=== PATIENT | male | born 1935 | race Caucasian/White ===

== ENCOUNTER 2017-06-23 14:45 | Inpatient (IN) ==
[2017-06-23] MEDS ORDERED: SODIUM CHLORIDE 0.9% 500 ML IV STA (16:07)
[2017-06-23 16:09] LABS: Basophils % 0.1 % (0.0-0.8); Eosinophils % 0.4 % (0.00-10.9); Hemoglobin 12.4 GM/DL (14.0-18.0); Immature Granulocytes % 0.3 %; Immature Granulocytes Absolute 0.02 #; Lymphocytes # 0.4 10*3/uL (1.4-4.0); Lymphocytes % 4.9 % (21.2-54.2); Mean Corpuscular HGB Conc 37.6 GM/DL (32-36); Mean Corpuscular Hemoglobin 32 PG (27-34); Mean Corpuscular Volume 86.2 FL (87-102); Mean Platelet Volume 10.8 FL (9.6-12.0); Monocytes # 0.5 10*3/uL (0.11-0.8); Monocytes % 6.5 % (1.7-12.7); Neutrophils # 6.8 10*3/uL (1.4-7.4); Neutrophils % 87.8 % (38.7-73.9); Platelet Count 106 T/CUMM (130-400); Red Blood Count 3.83 MC/CUMM (3.8-5.5); Red Cell Distribution Width 13.6 % (9.3-17.3); White Blood Count 7.7 T/CUMM (4-12)
[2017-06-23 16:17] LABS: INR 1.7; Partial Thromboplastin Time 36.4 SECS (0-40)
[2017-06-23 16:28] LABS: Albumin 3.3 G/DL (3.4-5.0); Bilirubin,Total 1.8 MG/DL (0.2-1.0); Calcium 8.3 MG/DL (8.5-10.1); Osmolality,Calculated 242.6 MOS/KG (273-304); Total Protein 6.5 G/DL (6.4-8.3)
[2017-06-23 16:36] LABS: Potassium 2.1 MMOL/L (3.5-5.1)
[2017-06-23 17:11] LABS: Ammonia 72 UMOL/L (11-32)
[2017-06-23 17:15] LABS: Lactic Acid 1.6 MMOL/L (0.4-2.0)
[2017-06-23 17:17] LABS: Lymphocytes 7 % (20-55); Platelet Estimate Decreased; Segmented Neutrophils 89 % (50-85); Total Cells Counted 100
[2017-06-23 17:23] LABS: Apearance,Urine CLEAR (Clear); Bilirubin,Urine Negative (Negative); Blood, Urine Negative (Negative); Glucose,Urine (UA) Negative (Negative); Hyaline Casts,Urine 1 /LPF (0-3); Ketones,Urine Negative (Negative); Mucus,Urine Occasional /LPF (Occasional); Nitrite,Urine Negative (Negative); Protein,Urine Negative; RBC,Urine <1 /HPF (0-4); Squamous Epithelial Cell,Urine Occasional /HPF (0-10); Urine Color Yellow (Yellow); Urine Specific Gravity 1.005 (1.001-1.035); Urine Urobilinogen < 2.0 EU/DL (0.2-1.0)
[2017-06-23 17:23] LABS: Troponin I Only 0.091 NG/ML (0.00-0.045)
[2017-06-23] MEDS ORDERED: ACETAMINOPHEN 325 MG TABLET PO PRN (17:30)
[2017-06-23] MEDS ORDERED: ALBUTEROL 2.5 MG/3 ML NEB RESP TX PRN (17:30)
[2017-06-23] MEDS ORDERED: ONDANSETRON 4 MG/2 ML VIAL IV PRN (17:30)
[2017-06-23] MEDS ORDERED: POTASSIUM CHLORIDE RIDER 10 MEQ in PREMIX 1 EACH IV PRN (17:40)
[2017-06-23] MEDS: SODIUM CHLORIDE 3% INJ 500 ML IV SCH (18:05)
[2017-06-23] MEDS ORDERED: SODIUM CHLORIDE 0.9% 250 ML IV ONE (18:18)
[2017-06-23 19:53] LABS: Hepatitis A Ab IgM Result Negative (Negative); Hepatitis B Core IgM Quant 0.05 Index; Hepatitis B Core IgM Result Negative (Negative); Hepatitis B Surface Ag Quant 0.13 Index; Hepatitis B Surface Ag Result Negative (Negative); Hepatitis C Virus Ab Quant 0.05 Index; Hepatitis C Virus Ab Result Negative (Negative)
[2017-06-23] MEDS ORDERED: ENOXAPARIN 60 MG/0.6 ML SYRINGE ONE (20:27)
[2017-06-23] MEDS ORDERED: POTASSIUM CHLORIDE RIDER 200 ML IV ONE (20:27)
[2017-06-23] MEDS: ENOXAPARIN 60 MG/0.6 ML SYRINGE SUBCUT SCH (20:48)
[2017-06-23] MEDS: POTASSIUM CHLORIDE RIDER 10 MEQ in PREMIX 1 EACH IV SCH ×3 (20:50→22:38)
[2017-06-23 21:29] LABS: Troponin I Only 0.086 NG/ML (0.00-0.045)
[2017-06-23 21:31] LABS: Potassium 1.9 MMOL/L (3.5-5.1)
[2017-06-23] MEDS ORDERED: POTASSIUM CHLORIDE RIDER 100 ML IV ONE (22:39)
[2017-06-24] MEDS: LACTULOSE 20 GM/30 ML UDCUP PO SCH ×5 (00:14→23:35)
[2017-06-24] MEDS: POTASSIUM CHLORIDE RIDER 10 MEQ in PREMIX 1 EACH IV SCH ×7 (00:19→07:37)
[2017-06-24 03:04] LABS: Basophils % 0.1 % (0.0-0.8); Eosinophils % 0.4 % (0.00-10.9); Hemoglobin 11.1 GM/DL (14.0-18.0); Immature Granulocytes % 0.5 %; Immature Granulocytes Absolute 0.04 #; Lymphocytes # 0.3 10*3/uL (1.4-4.0); Lymphocytes % 4.1 % (21.2-54.2); Mean Corpuscular Hemoglobin 32 PG (27-34); Mean Corpuscular Volume 86.7 FL (87-102); Mean Platelet Volume 11.3 FL (9.6-12.0); Monocytes # 0.6 10*3/uL (0.11-0.8); Monocytes % 7.3 % (1.7-12.7); Neutrophils # 7.3 10*3/uL (1.4-7.4); Neutrophils % 87.6 % (38.7-73.9); Platelet Count 104 T/CUMM (130-400); Red Blood Count 3.46 MC/CUMM (3.8-5.5); Red Cell Distribution Width 13.8 % (9.3-17.3); White Blood Count 8.3 T/CUMM (4-12)
[2017-06-24 03:12] LABS: INR 1.8; PT Patient Result 19.1 SECS
[2017-06-24 03:52] LABS: Band Neutrophils 2 % (0-10); Lymphocytes 2 % (20-55); Segmented Neutrophils 89 % (50-85)
[2017-06-24 03:55] LABS: Platelet Estimate Decreased; Total Cells Counted 100
[2017-06-24 04:19] LABS: Albumin 2.9 G/DL (3.4-5.0); Bilirubin,Direct 0.7 MG/DL (0.0-0.20); Bilirubin,Indirect 0.8 MG/DL (0.0-1.0); Bilirubin,Total 1.5 MG/DL (0.2-1.0); Free T4 (Free Thyroxine) 1.19 NG/DL (0.76-1.46); Thyroid Stimulating Hormone 7.04 uIU/ml (0.358-3.74); Total Protein 5.5 G/DL (6.4-8.3)
[2017-06-24 04:21] LABS: Troponin I Only 0.095 NG/ML (0.00-0.045)
[2017-06-24 06:35] LABS: Calcium 7.7 MG/DL (8.5-10.1); Osmolality,Calculated 254.8 MOS/KG (273-304)
[2017-06-24 06:36] LABS: Potassium 2.3 MMOL/L (3.5-5.1)
[2017-06-24] MEDS ORDERED: POTASSIUM CHLORIDE INJ 10 MEQ in SODIUM CHLORIDE 0.9% 100 ML IV SCH (07:00)
[2017-06-24] MEDS: PANTOPRAZOLE 40 MG TABLET PO SCH (08:49)
[2017-06-24] MEDS ORDERED: POTASSIUM CHLORIDE INJ 60 MEQ in SODIUM CHLORIDE 0.9% 1,000 ML IV SCH (11:00)
[2017-06-24] MEDS: SODIUM CHLORIDE 3% INJ 500 ML IV SCH (13:41)
[2017-06-24] MEDS: WARFARIN 4 MG TABLET PO SCH (18:14)
[2017-06-24 20:38] LABS: Calcium 7.6 MG/DL (8.5-10.1); Osmolality,Calculated 268.5 MOS/KG (273-304); Potassium 2.7 MMOL/L (3.5-5.1)
[2017-06-24] MEDS: ENOXAPARIN 60 MG/0.6 ML SYRINGE SUBCUT SCH (21:01)
[2017-06-24] MEDS: SODIUM CHLORIDE 0.9% 1,000 ML IV SCH (21:34)
[2017-06-24] MEDS ORDERED: POTASSIUM CHLORIDE IV SCH (22:00)
[2017-06-24] MEDS ORDERED: SODIUM CHLORIDE 0.9% IV SCH (22:00)
[2017-06-25 02:36] LABS: Basophils % 0.3 % (0.0-0.8); Eosinophils # 0.1 10*3/uL (0.0-0.87); Eosinophils % 1.3 % (0.00-10.9); Hematocrit 28.6 VOL% (42.0-52.0); Hemoglobin 10.4 GM/DL (14.0-18.0); Immature Granulocytes % 0.5 %; Immature Granulocytes Absolute 0.04 #; Lymphocytes # 0.5 10*3/uL (1.4-4.0); Lymphocytes % 6.8 % (21.2-54.2); Mean Corpuscular HGB Conc 36.4 GM/DL (32-36); Mean Corpuscular Hemoglobin 33 PG (27-34); Mean Corpuscular Volume 89.7 FL (87-102); Mean Platelet Volume 11.1 FL (9.6-12.0); Monocytes # 0.5 10*3/uL (0.11-0.8); Monocytes % 6.9 % (1.7-12.7); Neutrophils # 6.4 10*3/uL (1.4-7.4); Neutrophils % 84.2 % (38.7-73.9); Platelet Count 95 T/CUMM (130-400); Red Blood Count 3.19 MC/CUMM (3.8-5.5); Red Cell Distribution Width 14.2 % (9.3-17.3); White Blood Count 7.6 T/CUMM (4-12)
[2017-06-25 02:44] LABS: PT Patient Result 20.1 SECS
[2017-06-25 02:53] LABS: Calcium 7.1 MG/DL (8.5-10.1); Osmolality,Calculated 269.4 MOS/KG (273-304)
[2017-06-25 02:56] LABS: Calcium 7.1 MG/DL (8.5-10.1); Magnesium 1.9 MG/DL (1.8-2.4); Osmolality,Calculated 267.4 MOS/KG (273-304)
[2017-06-25 03:20] LABS: Burr Cells Few; Platelet Estimate Decreased
[2017-06-25] MEDS: LACTULOSE 20 GM/30 ML UDCUP PO SCH ×4 (06:18→23:59)
[2017-06-25] MEDS ORDERED: SODIUM CHLORIDE 0.9% IV SCH (07:00)
[2017-06-25] MEDS ORDERED: POTASSIUM CHLORIDE IV SCH (07:00)
[2017-06-25] MEDS: ENOXAPARIN 60 MG/0.6 ML SYRINGE SUBCUT SCH ×2 (08:58→20:38)
[2017-06-25] MEDS: PANTOPRAZOLE 40 MG TABLET PO SCH (08:58)
[2017-06-25] MEDS: SODIUM CHLORIDE 0.9% 1,000 ML IV SCH (12:56)
[2017-06-25] MEDS: POTASSIUM CHLORIDE 20 MEQ TABLET PO PRN ×3 (15:44→23:58)
[2017-06-25] MEDS: WARFARIN 4 MG TABLET PO SCH (19:02)
[2017-06-26] MEDS: POTASSIUM CHLORIDE 20 MEQ TABLET PO PRN (01:44)
[2017-06-26] MEDS: SODIUM CHLORIDE 0.9% 1,000 ML IV SCH (01:46)
[2017-06-26 04:30] LABS: PT Patient Result 20.3 SECS
[2017-06-26 04:50] LABS: Calcium 7.6 MG/DL (8.5-10.1); Magnesium 1.8 MG/DL (1.8-2.4); Osmolality,Calculated 262.7 MOS/KG (273-304); Potassium 3.9 MMOL/L (3.5-5.1)
[2017-06-26] MEDS: LACTULOSE 20 GM/30 ML UDCUP PO SCH ×3 (05:37→20:22)
[2017-06-26] MEDS: FUROSEMIDE 40 MG TABLET PO SCH (08:45)
[2017-06-26] MEDS: ENOXAPARIN 60 MG/0.6 ML SYRINGE SUBCUT SCH ×2 (08:46→20:23)
[2017-06-26] MEDS: TAMSULOSIN 0.4 MG CAPSULE PO SCH (08:46)
[2017-06-26] MEDS: SPIRONOLACTONE 25 MG TABLET PO SCH (08:46)
[2017-06-26] MEDS: PANTOPRAZOLE 40 MG TABLET PO SCH (08:46)
[2017-06-26 09:05] LABS: Albumin 2.5 G/DL (3.4-5.0); Bilirubin,Total 1.8 MG/DL (0.2-1.0); Calcium 7.5 MG/DL (8.5-10.1); Osmolality,Calculated 269.2 MOS/KG (273-304); Total Protein 5.4 G/DL (6.4-8.3)
[2017-06-26] MEDS ORDERED: ALBUTEROL/IPRATROPIUM 3 ML NEB RESP TX PRN (10:44)
[2017-06-26] MEDS: CIPROFLOXACIN 0.3% OPH SOLN 2.5 ML BOTTLE BOTH EYES SCH ×3 (14:58→20:23)
[2017-06-26] MEDS: WARFARIN 5 MG TABLET PO SCH (20:22)
[2017-06-26] MEDS ORDERED: guaiFENesin/DM ER 600-30 MG TABLET PO PRN (23:56)
[2017-06-27] MEDS: LACTULOSE 20 GM/30 ML UDCUP PO SCH ×5 (00:16→23:52)
[2017-06-27] MEDS: CIPROFLOXACIN 0.3% OPH SOLN 2.5 ML BOTTLE BOTH EYES SCH ×7 (00:19→23:54)
[2017-06-27 05:12] LABS: INR 2.2
[2017-06-27 05:21] LABS: PT Patient Result 22.1 SECS
[2017-06-27 05:27] LABS: Calcium 7.4 MG/DL (8.5-10.1); Magnesium 1.9 MG/DL (1.8-2.4); Osmolality,Calculated 266.4 MOS/KG (273-304); Potassium 3.6 MMOL/L (3.5-5.1)
[2017-06-27] MEDS: ENOXAPARIN 60 MG/0.6 ML SYRINGE SUBCUT SCH ×2 (09:37→20:36)
[2017-06-27] MEDS: FUROSEMIDE 40 MG TABLET PO SCH (09:38)
[2017-06-27] MEDS: TAMSULOSIN 0.4 MG CAPSULE PO SCH (09:38)
[2017-06-27] MEDS: PANTOPRAZOLE 40 MG TABLET PO SCH (09:38)
[2017-06-27] MEDS: SPIRONOLACTONE 25 MG TABLET PO SCH (09:38)
[2017-06-27] MEDS: SPIRONOLACTONE 50 MG TABLET PO SCH (11:35)
[2017-06-27] MEDS: WARFARIN 5 MG TABLET PO SCH (18:16)
[2017-06-27] MEDS: POTASSIUM CHLORIDE 20 MEQ TABLET PO PRN ×2 (20:28→23:51)
[2017-06-28] MEDS: CIPROFLOXACIN 0.3% OPH SOLN 2.5 ML BOTTLE BOTH EYES SCH ×5 (03:59→21:08)
[2017-06-28 06:06] LABS: Calcium 7.7 MG/DL (8.5-10.1); Magnesium 1.8 MG/DL (1.8-2.4); Osmolality,Calculated 262.7 MOS/KG (273-304)
[2017-06-28] MEDS: SPIRONOLACTONE 50 MG TABLET PO SCH (08:54)
[2017-06-28] MEDS: PANTOPRAZOLE 40 MG TABLET PO SCH (08:54)
[2017-06-28] MEDS: FUROSEMIDE 40 MG TABLET PO SCH (08:54)
[2017-06-28] MEDS: ENOXAPARIN 60 MG/0.6 ML SYRINGE SUBCUT SCH (08:55)
[2017-06-28] MEDS: BISACODYL 10 MG SUPP RECTAL SCH ×2 (08:55→20:34)
[2017-06-28] MEDS: TAMSULOSIN 0.4 MG CAPSULE PO SCH (08:56)
[2017-06-28] MEDS: ASPIRIN EC 81 MG TABLET PO SCH (12:22)
[2017-06-28] MEDS: METOPROLOL TARTRATE 25 MG TABLET PO SCH ×2 (12:22→20:34)
[2017-06-28] MEDS ORDERED: DOCUSATE SODIUM 100 MG CAPSULE PO PRN (13:10)
[2017-06-28] MEDS ORDERED: SODIUM PHOSPHATE ENEMA 133 ML BOTTLE RECTAL ONE (13:10)
[2017-06-28] MEDS: WARFARIN 5 MG TABLET PO SCH (18:26)
[2017-06-28] MEDS: POLYETHYLENE GLYCOL POWDER 17 GM PACK PO SCH (20:35)
[2017-06-28] MEDS: LACTULOSE 20 GM/30 ML UDCUP PO SCH (20:35)
[2017-06-29] MEDS: CIPROFLOXACIN 0.3% OPH SOLN 2.5 ML BOTTLE BOTH EYES SCH ×6 (00:48→20:10)
[2017-06-29 04:52] LABS: Basophils % 0.5 % (0.0-0.8); Eosinophils # 0.3 10*3/uL (0.0-0.87); Eosinophils % 4.6 % (0.00-10.9); Hematocrit 32.5 VOL% (42.0-52.0); Hemoglobin 11.5 GM/DL (14.0-18.0); Immature Granulocytes % 0.5 %; Immature Granulocytes Absolute 0.04 #; Lymphocytes # 0.6 10*3/uL (1.4-4.0); Lymphocytes % 7.5 % (21.2-54.2); Mean Corpuscular HGB Conc 35.4 GM/DL (32-36); Mean Corpuscular Hemoglobin 33 PG (27-34); Mean Corpuscular Volume 91.8 FL (87-102); Mean Platelet Volume 10.7 FL (9.6-12.0); Monocytes # 0.6 10*3/uL (0.11-0.8); Monocytes % 8.3 % (1.7-12.7); Neutrophils # 5.7 10*3/uL (1.4-7.4); Neutrophils % 78.6 % (38.7-73.9); Platelet Count 99 T/CUMM (130-400); Red Blood Count 3.54 MC/CUMM (3.8-5.5); Red Cell Distribution Width 14.2 % (9.3-17.3); White Blood Count 7.3 T/CUMM (4-12)
[2017-06-29 04:58] LABS: PT Patient Result 20.4 SECS
[2017-06-29 05:31] LABS: Calcium 7.6 MG/DL (8.5-10.1); Osmolality,Calculated 269.2 MOS/KG (273-304); Potassium 4.4 MMOL/L (3.5-5.1)
[2017-06-29 05:39] LABS: Risk Ratio 2.11; VLDL CHOLESTEROL 7.2 MG/DL
[2017-06-29 06:50] LABS: Eosinophils 4 % (0-10); Lymphocytes 3 % (20-55); Platelet Estimate Decreased; Segmented Neutrophils 91 % (50-85); Total Cells Counted 100
[2017-06-29] MEDS: FUROSEMIDE 40 MG TABLET PO SCH (09:29)
[2017-06-29] MEDS: SPIRONOLACTONE 50 MG TABLET PO SCH (09:29)
[2017-06-29] MEDS: POLYETHYLENE GLYCOL POWDER 17 GM PACK PO SCH ×2 (09:29→20:10)
[2017-06-29] MEDS: PANTOPRAZOLE 40 MG TABLET PO SCH (09:29)
[2017-06-29] MEDS: METOPROLOL TARTRATE 25 MG TABLET PO SCH ×2 (09:30→20:10)
[2017-06-29] MEDS: ASPIRIN EC 81 MG TABLET PO SCH (09:30)
[2017-06-29] MEDS: TAMSULOSIN 0.4 MG CAPSULE PO SCH (09:30)
[2017-06-29] MEDS: LACTULOSE 20 GM/30 ML UDCUP PO SCH ×2 (09:31→20:10)
[2017-06-29] MEDS: BISACODYL 10 MG SUPP RECTAL SCH ×2 (09:31→20:10)
[2017-06-29] MEDS ORDERED: WARFARIN 2.5 MG TABLET PO ONE (18:00)
[2017-06-29] MEDS: WARFARIN 3 MG TABLET PO SCH (18:52)
[2017-06-29] MEDS: DOCUSATE SODIUM 100 MG CAPSULE PO SCH (20:10)
[2017-06-29] MEDS ORDERED: PSYLLIUM POWDER 3.7 GM/PACK PO SCH (21:00)
[2017-06-30] MEDS: CIPROFLOXACIN 0.3% OPH SOLN 2.5 ML BOTTLE BOTH EYES SCH ×6 (01:03→20:47)
[2017-06-30 06:19] LABS: INR 2.3
[2017-06-30 06:21] LABS: Basophils # 0.1 10*3/uL (0.0-0.2); Basophils % 0.6 % (0.0-0.8); Eosinophils # 0.3 10*3/uL (0.0-0.87); Eosinophils % 3.6 % (0.00-10.9); Hematocrit 31.2 VOL% (42.0-52.0); Hemoglobin 10.7 GM/DL (14.0-18.0); Immature Granulocytes % 0.5 %; Immature Granulocytes Absolute 0.04 #; Lymphocytes # 0.7 10*3/uL (1.4-4.0); Lymphocytes % 9.3 % (21.2-54.2); Mean Corpuscular HGB Conc 34.3 GM/DL (32-36); Mean Corpuscular Hemoglobin 32 PG (27-34); Mean Corpuscular Volume 94.3 FL (87-102); Mean Platelet Volume 11.1 FL (9.6-12.0); Monocytes # 0.6 10*3/uL (0.11-0.8); Neutrophils # 6.1 10*3/uL (1.4-7.4); Platelet Count 106 T/CUMM (130-400); Red Blood Count 3.31 MC/CUMM (3.8-5.5); Red Cell Distribution Width 14.4 % (9.3-17.3); White Blood Count 7.8 T/CUMM (4-12)
[2017-06-30 06:27] LABS: Calcium 7.3 MG/DL (8.5-10.1); Magnesium 1.9 MG/DL (1.8-2.4); Osmolality,Calculated 270.2 MOS/KG (273-304); Potassium 4.8 MMOL/L (3.5-5.1)
[2017-06-30 06:28] LABS: PT Patient Result 23.6 SECS
[2017-06-30] MEDS ORDERED: PSYLLIUM POWDER 3.7 GM/PACK PO SCH (09:00)
[2017-06-30] MEDS: FUROSEMIDE 40 MG TABLET PO SCH (09:03)
[2017-06-30] MEDS: METOPROLOL TARTRATE 25 MG TABLET PO SCH ×2 (09:03→20:44)
[2017-06-30] MEDS: TAMSULOSIN 0.4 MG CAPSULE PO SCH (09:03)
[2017-06-30] MEDS: SPIRONOLACTONE 50 MG TABLET PO SCH (09:04)
[2017-06-30] MEDS: DOCUSATE SODIUM 100 MG CAPSULE PO SCH ×2 (09:04→20:44)
[2017-06-30] MEDS: ASPIRIN EC 81 MG TABLET PO SCH (09:05)
[2017-06-30] MEDS: LACTULOSE 20 GM/30 ML UDCUP PO SCH ×2 (09:05→20:44)
[2017-06-30] MEDS: POLYETHYLENE GLYCOL POWDER 17 GM PACK PO SCH ×2 (09:05→20:45)
[2017-06-30] MEDS: BISACODYL 10 MG SUPP RECTAL SCH ×2 (09:05→20:44)
[2017-06-30] MEDS: PANTOPRAZOLE 40 MG TABLET PO SCH (09:05)
[2017-06-30] MEDS ORDERED: SPIRONOLACTONE 25 MG TABLET PO SCH (09:40)
[2017-06-30] MEDS: PSYLLIUM POWDER 3.7 GM/PACK PO SCH ×2 (13:34→20:45)
[2017-06-30] MEDS ORDERED: TUBERCULIN SKIN TEST 0.1 ML SYRINGE INTRADERM ONE (16:04)
[2017-06-30] MEDS: WARFARIN 3 MG TABLET PO SCH (18:11)
[2017-07-01] MEDS: CIPROFLOXACIN 0.3% OPH SOLN 2.5 ML BOTTLE BOTH EYES SCH ×6 (00:16→21:01)
[2017-07-01 07:47] LABS: Basophils # 0.1 10*3/uL (0.0-0.2); Basophils % 0.6 % (0.0-0.8); Eosinophils # 0.3 10*3/uL (0.0-0.87); Eosinophils % 3.9 % (0.00-10.9); Hematocrit 32.3 VOL% (42.0-52.0); Hemoglobin 11.1 GM/DL (14.0-18.0); Immature Granulocytes % 0.4 %; Immature Granulocytes Absolute 0.03 #; Lymphocytes # 0.6 10*3/uL (1.4-4.0); Lymphocytes % 7.8 % (21.2-54.2); Mean Corpuscular HGB Conc 34.4 GM/DL (32-36); Mean Corpuscular Hemoglobin 32 PG (27-34); Mean Corpuscular Volume 93.4 FL (87-102); Mean Platelet Volume 10.1 FL (9.6-12.0); Monocytes # 0.7 10*3/uL (0.11-0.8); Monocytes % 8.2 % (1.7-12.7); Neutrophils # 6.5 10*3/uL (1.4-7.4); Neutrophils % 79.1 % (38.7-73.9); Platelet Count 116 T/CUMM (130-400); Red Blood Count 3.46 MC/CUMM (3.8-5.5); Red Cell Distribution Width 14.7 % (9.3-17.3); White Blood Count 8.2 T/CUMM (4-12)
[2017-07-01 08:04] LABS: PT Patient Result 30.4 SECS
[2017-07-01 08:11] LABS: Calcium 7.5 MG/DL (8.5-10.1); Magnesium 1.9 MG/DL (1.8-2.4); Osmolality,Calculated 272.1 MOS/KG (273-304)
[2017-07-01] MEDS: LACTULOSE 20 GM/30 ML UDCUP PO SCH ×2 (09:27→21:10)
[2017-07-01] MEDS: POLYETHYLENE GLYCOL POWDER 17 GM PACK PO SCH ×2 (09:27→21:14)
[2017-07-01] MEDS: METOPROLOL TARTRATE 25 MG TABLET PO SCH ×2 (09:27→21:14)
[2017-07-01] MEDS: BISACODYL 10 MG SUPP RECTAL SCH ×2 (09:28→21:05)
[2017-07-01] MEDS: DOCUSATE SODIUM 100 MG CAPSULE PO SCH ×2 (09:28→21:11)
[2017-07-01] MEDS: TAMSULOSIN 0.4 MG CAPSULE PO SCH (09:28)
[2017-07-01] MEDS: FUROSEMIDE 40 MG TABLET PO SCH (09:28)
[2017-07-01] MEDS: ASPIRIN EC 81 MG TABLET PO SCH (09:28)
[2017-07-01] MEDS: PANTOPRAZOLE 40 MG TABLET PO SCH (09:28)
[2017-07-01] MEDS ORDERED: SPIRONOLACTONE 25 MG TABLET PO SCH (10:53)
[2017-07-01] MEDS: PSYLLIUM POWDER 3.7 GM/PACK PO SCH ×2 (12:34→21:12)
[2017-07-01] MEDS ORDERED: WARFARIN 5 MG TABLET PO SCH (18:00)
[2017-07-02] MEDS: CIPROFLOXACIN 0.3% OPH SOLN 2.5 ML BOTTLE BOTH EYES SCH ×3 (01:48→08:56)
[2017-07-02 05:52] LABS: INR 3.1
[2017-07-02 08:14] VITALS: BP 127/62
[2017-07-02] MEDS: PANTOPRAZOLE 40 MG TABLET PO SCH (08:54)
[2017-07-02] MEDS: METOPROLOL TARTRATE 25 MG TABLET PO SCH (08:54)
[2017-07-02] MEDS: ASPIRIN EC 81 MG TABLET PO SCH (08:55)
[2017-07-02] MEDS: FUROSEMIDE 40 MG TABLET PO SCH (08:55)
[2017-07-02] MEDS: TAMSULOSIN 0.4 MG CAPSULE PO SCH (08:55)
[2017-07-02] MEDS: LACTULOSE 20 GM/30 ML UDCUP PO SCH (08:55)
[2017-07-02] MEDS: DOCUSATE SODIUM 100 MG CAPSULE PO SCH (08:55)
[2017-07-02] MEDS: BISACODYL 10 MG SUPP RECTAL SCH (08:55)
[2017-07-02] MEDS: PSYLLIUM POWDER 3.7 GM/PACK PO SCH (08:56)
[2017-07-02] MEDS: POLYETHYLENE GLYCOL POWDER 17 GM PACK PO SCH (08:56)
== END 2017-07-02 10:41 | DRG 640 ==
LOC: N.ED 14:45 → N.EDINP 17:00 → N.ICU 22:04 → N.4E 06-25 13:45
PROVIDERS: ADMIT Hospitalist; ATTEND Hospitalist